=== PATIENT | female | born 1940 | race Caucasian/White ===

== ENCOUNTER 2020-02-07 17:24 | Inpatient (IN) | payer OTHER ==
[~2020-02-07] VITALS: Ht 152.4 cm; Wt 62.6 kg
[2020-02-07 17:36] VITALS: BP 183/95
[2020-02-07 19:10] LABS: ABSOLUTE NEUTROPHILS 7.4 thou/uL (1.4-8.2); BASOPHILS 0.7 % (0.0-2.0); EOSINOPHILS 0.3 % (0.0-3.0); HEMATOCRIT 36.5 % (37.0-47.0); HEMOGLOBIN 12.1 gm/dL (12.0-15.0); LYMPHOCYTES 10.9 % (24.0-44.0); MCHC 33.2 g/dL (28.0-37.0); MCV 93.3 fL (80.0-100.0); PLATELET COUNT 402 thou/uL (150-400); POLYS 83.1 % (36.0-66.0); RBC 3.91 mil/uL (4.20-5.00); WBC 8.9 thou/uL (4.0-11.0)
[2020-02-07 19:16] LABS: CALCIUM 9.5 mg/dL (8.5-10.1); CREATININE 1.2 mg/dL (0.6-1.0); POTASSIUM 4.1 mmol/L (3.5-5.1)
[2020-02-07] MEDS ORDERED: METFORMIN HCL500 M3 PO (20:42)
[2020-02-07] MEDS ORDERED: TRAZODONE HCL50 MG PO (20:43)
[2020-02-07] MEDS ORDERED: PREGABALIN75 MG PO (20:44)
[2020-02-07 21:14] VITALS: BP 160/87
[2020-02-07 21:21] VITALS: BP 160/81
[2020-02-07 22:07] VITALS: BP 162/78
--- NOTE | 2020-02-07 22:21 | NUR ---
ADMITTED TO THE UNIT AT 2140. PT IS A/O X4 AND IS UP SBA TO THE BR. PT CURRENT BS IS 220. DENIES ANY C/O PAIN OR DISCOMFORT. AT THIS TIME PT IS LYING IN HER BED AND APPEARS TO BE RESTING. 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 WILL CONTINUE TO MONITOR.
[2020-02-08] MEDS ORDERED: NABUMETONE 500500 M2 PO (01:10)
[2020-02-08] MEDS ORDERED: ARICEPT10 MG PO (01:12)
[2020-02-08] MEDS ORDERED: ROSUVASTATIN CA10 MG PO (01:13)
[2020-02-08] MEDS ORDERED: OMEPRAZOLE 20 M20 M1 PO (01:13)
[2020-02-08] MEDS ORDERED: MYRBETRIQ25 MG PO (01:14)
[2020-02-08] MEDS ORDERED: ZESTRIL20 MG PO (01:14)
[2020-02-08] MEDS ORDERED: REGLAN 5 MG TAB5 MG PO (01:15)
[2020-02-08 06:22] LABS: CALCIUM 9.5 mg/dL (8.5-10.1); CREATININE 0.9 mg/dL (0.6-1.0); POTASSIUM 3.9 mmol/L (3.5-5.1)
[2020-02-08 07:58] LABS: TSH 0.544 uIU/mL (0.358-3.740)
[2020-02-08 09:27] VITALS: BP 168/72
[2020-02-08 14:40] VITALS: BP 146/75
--- NOTE | 2020-02-08 15:47 | NUR ---
PT ADMITTED RELATED TO HYPOGLYCEMIA. CM REVIEWED CHART AND SPOKE WITH CARE TEAM. CM MET WITH PT AT BEDSIDE THIS DAY. PT APPEARED TO BE A&O X4. CM ROLE INTRODUCED. PT INDICATED SHE RESIDES ALONE IN A DUPLEX WITH NO STEPS TO ENTER AND NO STEPS INSIDE. 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 PT INDICATED SHE HAD BEEN DOING OP THERAPY AT [facility]. PT INDICATED HE PCP IS DR. KEVIN OWUSU. SHE INDICATED SHE PLANS TO RETURN HOME ONCE MEDICALLY STABLE. CM INDICATED THAT CARE TEAM HAD MENTIONED THAT PT MAY BE MEDICCALLY STABLE TO DC HOME TOMORROW. PT IS RECEPTIVE TO HH UPON DC. REFERRAL TO BE SENT TO [facility] PER PT'S REQUEST. PT INDICATED SHE NEED A CAB RIDE HOME. PT'S ADDRESS IS [address] [place] [address]. NURSE TO PROVIDE ZTRIP VOUCHER FOR TRANPORT HOME.
[2020-02-08 16:27] VITALS: BP 146/75
--- NOTE | 2020-02-08 18:57 | NUR ---
Alert and orientated X 3, difficulty remembering day, but able to state month and year. Wants to know when she will be discharged. Requesting metformin and insulin. Dr. Hardy notified, referred to endocrine. Endocrine here, rounding on pt. Breath sounds clear t/o. Reg HR auscultated. Color pink with brisk capillary refill and palpable peripheral pulses. L AC area edematous around IV sit, difficult to flush, removed. Active bowel sounds over soft, rounded abdomen. Voiding yellow urine per toilet. Reg gait with belt, assisted to bathroom. Spent most of day either in bed or sitting in chair. Remains alert and conversive. IV team started IV per R forearm, infusing at 80 cc/hr, site soft and flat. No s/o distress.
[2020-02-08 20:15] VITALS: BP 156/68
[2020-02-08 23:06] LABS: GLYCOHEMOGLOBIN (HGB A1C) 7.3 % (4.8-5.6)
--- NOTE | 2020-02-09 05:21 | NUR ---
ASSUMED PT'S CARE THIS PM SHIFT. PT LAERT AND ORIENTED. DID SHOW SOME CONFUSION AND FORGETFULNESS THIS SHIFT. PT SEEMED IRRITABLE WITH ORIENTATION QUESTIONS, VOICING "IT'S ANNOYING TO ASK THESE QUESTIONS BECAUSE I DID NOT HAVE A STROKE". PT EDUCATED THAT ORIENTATION QUESTIONS ARE PART GENERAL ASSESSMENT. PT WAS COOPERATIVE WITH MEDS. CALLS OUT TO USE THE BATHROOM. STB ASSIST TO BATHROOM. FALL PRECAUTION IN PLACE. WILL CONTINUE TO MONITOR.
[2020-02-09 05:36] LABS: HEMATOCRIT 32.4 % (37.0-47.0); HEMOGLOBIN 10.8 gm/dL (12.0-15.0); MCH 30.6 pg (26.0-34.0); MCHC 33.2 g/dL (28.0-37.0); MCV 92.1 fL (80.0-100.0); RBC 3.51 mil/uL (4.20-5.00); RDW 14.2 % (10.5-14.5); WBC 5.2 thou/uL (4.0-11.0)
[2020-02-09 05:46] LABS: CALCIUM 8.9 mg/dL (8.5-10.1); CREATININE 1.1 mg/dL (0.6-1.0); POTASSIUM 3.7 mmol/L (3.5-5.1)
[2020-02-09 08:39] VITALS: BP 152/88
--- NOTE | 2020-02-09 12:24 | HC ---
[facility] [place] [address] CONSULTATION Name: SOPHIE MANJARREZ Room #: 456-P [facility] IN .R.#: [id number] Admission: 02/07/20 Attend Phys: Candelario Hardy MD Discharge: Date of : 44 Report #: [id number] THIS REPORT FOR: cc: Physician not on staff Physician not on staff Maurilio Barrera MD ~ DATE OF SERVICE: 02/08/2020 ENDOCRINE CONSULTATION NOTE CONSULTING PHYSICIAN: Dr. Hardy. REASON FOR CONSULTATION: Hypoglycemia, type 2 diabetes mellitus. HISTORY OF PRESENT ILLNESS: This is a 79-year-old female patient whose medical background is significant for multiple medical issues including type 2 diabetes mellitus, hypertension and hyperlipidemia. The patient presented to the ER via EMS due to severe hypoglycemia, which was initially measured at 20 mg/dL. The patient was found unconscious and was resuscitated with D10 and had an initial improvement. On arrival, her blood glucose was initially 130 mg/dL. The patient notes that she has had type 2 diabetes mellitus for over 10 years and that she is maintained on a combination of metformin 1000 mg b.i.d. as well as NovoLog 70/30 insulin at a dose of 26 units with each meal 3 times a day. She notes that her blood glucose values are fairly consistent in the mid to high 100 mg/dL range and that she essentially never experiences hypoglycemia. When I tried to investigate the nature of events surrounding the presenting hypoglycemic event, the patient was not able to pinpoint any aberration of her diet or physical activity, although she initially had told the ER staff that she had missed breakfast that day. She is not aware of complications of diabetic retinopathy, diabetic neuropathy or CAD, but she does have active issues with CKD that she follows with Nephrology for. She is also known to have hypertension and hyperlipidemia by her report. REVIEW OF SYSTEMS: CONSTITUTIONAL: Occasional issues with fatigue and tiredness, but no fever, chills or body weight changes. HEENT: Negative for sore throat, sinus pain or ear drainage. PULMONARY: Negative for shortness of breath, cough or hemoptysis. CARDIAC: Negative for chest pain, palpitations, noted for syncope. GASTROINTESTINAL: Negative for abdominal pain, nausea, vomiting or changes in [facility] [address] [place] [address] CONSULTATION Name: SOPHIE MANJARREZ Room #: 456-P [facility] IN [facility].#: [id number] Admission: 02/07/20 Attend Phys: Candelario Hardy MD Discharge: Date of : 44 Report #: [id number] bowel movement frequency. NEUROLOGY: Noted for loss of consciousness, but negative for seizure activity or frequent severe headaches. Otherwise, review of system was noncontributory other than those mentioned in HPI. PAST MEDICAL HISTORY: 1. Type 2 diabetes mellitus. 2. Hypertension. 3. Hyperlipidemia. 4. GERD. 5. Reports of CKD by the patient, under the active followup of Nephrology. PAST SURGICAL HISTORY: , tubal ligation, right ankle fracture repair, cholecystectomy, left wrist fracture repair, right wrist surgery, sinusitis. OUTPATIENT MEDICATIONS: Metformin 1000 mg b.i.d., trazodone 50 mg at bedtime, pregabalin 75 mg at bedtime, NovoLog 70/30 insulin 26 units t.i.d. a.c. ALLERGIES: MORPHINE, SULFA, TRIMETHOPRIM. SOCIAL HISTORY: She lives by herself. Denies use of tobacco, alcohol or illicit drugs. PHYSICAL EXAMINATION: GENERAL: Pleasant female patient who is not in apparent pain or distress. VITAL SIGNS: Blood pressure is 168/72 mmHg, heart rate is 78 beats per minute, respirations 16 per minute, temperature is 36.5 degrees Celsius. CONSTITUTIONAL: She is sitting upright in bed, appears comfortable, not in pain or distress. HEENT: Anicteric sclerae. Intact extraocular motions. NECK: Supple, without JVD, carotid bruits or lymphadenopathy. I do not appreciate thyromegaly. CHEST: Noted for moderate air entry bilaterally with scattered rales. No wheezes or crackles. HEART: Regular rate and rhythm without murmurs or gallops. ABDOMEN: Soft, lax. No guarding. Active bowel sounds. EXTREMITIES: Lower extremity exam, trace ankle edema bilaterally. NEUROLOGIC: Awake, alert and oriented to time, place and person. The remainder of her examination is nonfocal. PSYCHIATRIC: Pleasant, interactive. Normal mood and affect. Normal thought content. [address] [address] CONSULTATION Name: SOPHIE MANJARREZ Room #: 456-P [facility] IN M.R.#: [id number] Admission: 02/07/20 Attend Phys: Candelario Hardy MD Discharge: Date of : 44 Report #: [id number] LABORATORY RESULTS: Blood glucose values on arrival were less than 30 initially, went up to 44, then a high of 220. This morning, it was at 109 and prior to this dictation, 174 mg/dL. Sodium 140, potassium 3.9, chloride 104, CO2 of 24, anion gap 12, BUN 18, creatinine 0.9, glucose 81, calcium 9.5, magnesium 1.9. EGFR 61. White blood count 8.9, hemoglobin 12.1, hematocrit 36.5, platelets 402. TSH 0.544. Hemoglobin A1c is pending. ASSESSMENT AND PLAN: 1. Hypoglycemia. As noted above, the patient had a symptomatic severe hypoglycemic episode with neuroglycopenia and associated loss of consciousness. The patient was counseled at length about the significance of this issue and about the importance of making therapeutic adjustments so as to avoid similar occurrings in the future. Adding to the concern is the fact that she lives alone. The patient seems to understand these considerations well. So far into her hospital stay, the patient has responded well to the undertaken measures, but I would like for her blood glucose values to be consistently over 180 mg/dL before resuming insulin therapy. However, I do not mind initiating metformin therapy at a lower dose of 500 mg b.i.d. Blood glucose monitoring will continue on a routine basis and hypoglycemia is to be addressed as per the [facility]'s hypoglycemia protocol. 2. Type 2 diabetes mellitus. The patient reports a fairly consistent control of her blood glucose values at home on her current regimen. The hemoglobin A1c is pending and would help us further assess her overall level of control. Given the hypoglycemic event and the concern of recurrent episodes in the future, I advised the patient to change her metformin to 500 mg b.i.d., especially in view of stage 3 chronic kidney disease as well as drop her NovoLog 70/30 insulin dose to 20 units t.i.d. a.c. instead of 26 units. I stressed the need to aggressively eliminate any outlook of hypoglycemia in the future. 3. Chronic kidney disease. The patient reports active chronic issues with chronic kidney disease that she follows with Dr. Santana, Nephrology, for. Her kidney function indices during this hospital stay are consistent with stage 3 chronic kidney disease. That said, I prefer that she tapers down her metformin dose to 500 mg b.i.d. in order to avoid safety issues in the event her renal insufficiency advances. [facility] [address] [place] [address] CONSULTATION Name: SOPHIE MANJARREZ Room #: 456-P [facility] IN M.R.#: [id number] Admission: 02/07/20 Attend Phys: Candelario Hardy MD Discharge: Date of : 44 Report #: [id number] I certainly appreciate this consultation by Dr. Hardy. <ELECTRONICALLY SIGNED> By: Maurilio Barrera MD 02/09/20 1224 1134 2034 Maurilio Barrera MD /nt
[2020-02-09 13:20] VITALS: BP 151/96
--- NOTE | 2020-02-09 16:13 | NUR ---
ASSUMED CARE AT 0700 THIS MORNING. PT. PLEASANT AND COOPERATIVE. SHE WAS CONCERNED THIS MORNING ABOUT HER INSULIN. NO INSULIN WAS ORDERED THIS MORNING AND SHE WAS GIVEN METFORMIN. AT LUNCH DID RESTART HER INSULIN. SHE WAS GIVEN LISPRO WITH HER LUNCH. TEACHING WAS CONTINUED ON THE NEED FOR LISPRO. NPH WAS ORDERED THEN D/C'D. SHE WAS COOPERATIVE WITH ASSESSMENT AND MEDICATIONS. SHE IS EATING WELL. PT. IS FORGETFUL SHE ASKED THE SAME QUESTIONS OVER AND OVER AND STATED SHE COULD NOT UNDERSTAND SOME OF THE INFORMATION GIVEN TO HER (IN PARTICULAR, WHY HER INSULIN WAS NOT SHE RECALLED IT TO BE).
[2020-02-09 16:29] VITALS: BP 149/81
[2020-02-09 20:02] VITALS: BP 168/88
--- NOTE | 2020-02-10 05:04 | NUR ---
Assumed pt care at 1900. A/OX4 with forgetfulness noted. Pt very fussy/irritable at the beginning of the shift;questions about insulin answered sleep aid administered on time per request.Denies pain on assessment, VSS. Continent of B&B. Up with SBA to BR. Fall precautions in place, reminded to call for help before getting up. Looking forward to dc home sometime today. Resting quietly in bed at this time w/o any distress noted,will continue to monitor pt.
[2020-02-10 08:42] VITALS: BP 138/70
--- NOTE | 2020-02-10 10:06 | NUR ---
ASSUMED CARE AT 0700 TODAY. PT. AWAKE AND ANSWERING QUESTIONS APPROPRIATELY. SHE WAS COOPERATIVE WITH VITALS, ASSESSMENT, MEDICATIONS AND BLOOD SUGAR. SHE STATED SHE IS GOING HOME TODAY. SHE IS EXCITED ABOUT THAT. SHE CONTINUES TO BE SOMEWHAT CONFUSED TO WHAT DOSE OF INSULIN AND WHEN. THIS RN CONTINUES TEACHING ON THIS SUBJECT.
[2020-02-10] MEDS ORDERED: NOVOLOG MI100 UNIT/M SUBQ (10:52)
== END 2020-02-10 13:43 | disposition home health service (06) | DRG 682 ==
LOC: ER 17:24 → 4W 19:50 → EROBS 19:50 → 4W 21:30
PROVIDERS: Emergency Medicine; Internal Medicine Geriatric Medicine; Nurse Practitioner Family; ADMIT Hospitalist; ATTEND Hospitalist
DX: I12.9 Hypertensive chronic kidney disease with stage 1 through stage 4 chronic kidney disease, or unspecified chronic kidney disease (principal); N17.0 Acute kidney failure with tubular necrosis; I16.0 Hypertensive urgency; E11.22 Type 2 diabetes mellitus with diabetic chronic kidney disease; E11.649 Type 2 diabetes mellitus with hypoglycemia without coma; N18.30 Chronic kidney disease, stage 3 unspecified; T38.3X5A Adverse effect of insulin and oral hypoglycemic [antidiabetic] drugs, initial encounter; E78.5 Hyperlipidemia, unspecified; K21.9 Gastro-esophageal reflux disease without esophagitis; R53.81 Other malaise; G47.00 Insomnia, unspecified; F03.90 Unspecified dementia, unspecified severity, without behavioral disturbance, psychotic disturbance, mood disturbance, and anxiety; Z79.899 Other long term (current) drug therapy; Z79.84 Long term (current) use of oral hypoglycemic drugs; Z98.891 History of uterine scar from previous surgery; Z90.49 Acquired absence of other specified parts of digestive tract; Z88.5 Allergy status to narcotic agent; Z88.8 Allergy status to other drugs, medicaments and biological substances; Z88.2 Allergy status to sulfonamides; Y92.89 Other specified places as the place of occurrence of the external cause
CPT/HCPCS: 10040